=== PATIENT | female | born 1990 | race Caucasian/White ===

== ENCOUNTER 2019-03-27 08:52 | Emergency (ER) | payer SELFPAY ==
[~2019-03-27] VITALS: Ht 167.6 cm; Wt 73.0 kg
[2019-03-27] MEDS ORDERED: AMOX-424 PO (08:56)
[2019-03-27] MEDS ORDERED: IBUP-2029 PO (08:56)
[2019-03-27] MEDS ORDERED: SODIUM CHLORIDE 0.9% 1,000 ML IV ONE ×2 (09:06→13:13)
[2019-03-27] MEDS ORDERED: ACTIVATED CHARCOAL 50 G/240 ML TUBE PO ONE (09:15)
[2019-03-27 10:03] LABS: BASOPHILS % 0.3 % (0.0-2.0); EOSINOPHILS % 0.6 % (0.0-5.0); HEMATOCRIT. 42.8 % (36.0-48.0); LYMPHOCYTES % 21.6 % (20.0-50.0); MEAN CORPUSCULAR HEMOGLOBIN 30.3 pg (28.0-32.0); MEAN CORPUSCULAR VOLUME 86.7 fL (81.0-99.0); MEAN PLATELET VOLUME 9.5 fl (7.4-10.4); MONOCYTES % 6.3 % (2.0-8.0); NEUTROPHILS % 71.2 % (40.0-76.0); PLATELET 306 x1000/uL (130-400); RED BLOOD CELL COUNT 4.94 mill/uL (4.2-5.4); RED CELL DISTRIBUTION WIDTH 12.7 % (11.6-14.6)
[2019-03-27 10:06] LABS: CHLORIDE 103 mEq/L (98-107)
[2019-03-27 10:14] LABS: CLARITY URINE CLEAR (CLEAR); COLOR URINE YELLOW (YELLOW); KETONES URINE NEGATIVE (NEGATIVE); LEUKOCYTE ESTERASE URINE TRACE (NEGATIVE); NITRITE URINE NEGATIVE (NEGATIVE); OCCULT BLOOD URINE NEGATIVE (NEGATIVE); PH URINE 5.5 (4.5-8.0); PROTEIN URINE NEGATIVE (NEGATIVE); SPECIFIC GRAVITY URINE 1.017 (1.005-1.030); UROBILINOGEN URINE 0.2 E.U./dL (0.2-1.0)
[2019-03-27 10:14] LABS: CREATINE KINASE 145 IU/L (26-192)
[2019-03-27 10:18] LABS: ETHANOL BLOOD < 10 mg/dL
[2019-03-27 10:25] LABS: HCG SCREEN NEGATIVE
[2019-03-27 10:28] LABS: PROTHROMBIN TIME 10.5 sec (9.6-11.0)
[2019-03-27 10:43] LABS: *BARBITURATES SCREEN URINE NEGATIVE (NEGATIVE); *BENZODIAZEPINES SCREEN URINE NEGATIVE (NEGATIVE); *COCAINE SCREEN URINE NEGATIVE (NEGATIVE); METHADONE URINE SCREEN NEGATIVE (NEGATIVE); OPIATES URINE SCREEN NEGATIVE (NEGATIVE)
[2019-03-27 10:44] LABS: CANNABINOID URINE SCREEN NEGATIVE (NEGATIVE); PHENCYCLIDINE URINE SCREEN NEGATIVE (NEGATIVE)
[2019-03-27 10:48] LABS: *AMPHETAMINES SCREEN URINE PRESUMTIVE POSITIVE (NEGATIVE)
[2019-03-27] MEDS ORDERED: POTASSIUM CHLORIDE 20MEQ TABLET SR PO ONE (11:00)
[2019-03-27] MEDS ORDERED: CEFTRIAXONE 1 G PREMIX 50 ML IV ONE (11:45)
[2019-03-27] MEDS ORDERED: ONDANSETRON HCL 4MG/2ML INJ IV ONE (12:30)
[2019-03-27] MEDS ORDERED: KCL 10MEQ/50ML PREMIX 50 ML IV ONE (13:15)
[2019-03-27 14:24] LABS: CHLORIDE 110 mEq/L (98-107)
[2019-03-27 18:16] LABS: HEMATOCRIT. 42.8 % (36.0-48.0); HEMOGLOBIN. 14.5 g/dL (12.0-16.0); MEAN CORPUSCULAR VOLUME 88.4 fL (81.0-99.0); MEAN PLATELET VOLUME 9.5 fl (7.4-10.4); PLATELET 212 x1000/uL (130-400); RED BLOOD CELL COUNT 4.84 mill/uL (4.2-5.4)
[2019-03-27 18:21] LABS: CHLORIDE 111 mEq/L (98-107)
[2019-03-27 19:03] LABS: PLATELET ESTIMATE NORMAL
[2019-03-28 14:45] VITALS: BP 98/58
== END 2019-03-28 14:53 | disposition home or self-care (01) ==
LOC: ER 08:52
DX: R45.851 Suicidal ideations (principal); T36.0X2A Poisoning by penicillins, intentional self-harm, initial encounter; T36.1X2A Poisoning by cephalosporins and other beta-lactam antibiotics, intentional self-harm, initial encounter; T39.312A Poisoning by propionic acid derivatives, intentional self-harm, initial encounter; N39.0 Urinary tract infection, site not specified; E87.6 Hypokalemia; F19.10 Other psychoactive substance abuse, uncomplicated; Y92.9 Unspecified place or not applicable
CPT/HCPCS: 36415; 80048; 80053; 80305; 80307; 80320; 80329; 81003; 82550; 82962; 83605; 84703; 85025; 85610; 93005; 96361; 96365; 96375; 99284; J0696; J2405; J3480; J7030; Z7610; J7040; G0480